=== PATIENT | male | born 1990 | race Caucasian/White ===

== ENCOUNTER 2020-12-21 15:34 | Emergency (ER) | payer OTHER ==
[~2020-12-21] VITALS: Ht 175.3 cm; Wt 74.8 kg
[2020-12-21] MEDS ORDERED: KETO10TA2 PO (19:40)
[2020-12-21] MEDS ORDERED: NORFLEX100MG PO (19:40)
== END 2020-12-21 20:45 | disposition home or self-care (01) ==
LOC: ER 15:34
DX: M54.5 Low back pain (principal)

== ENCOUNTER 2024-06-12 14:26 | Emergency (ER) | payer OTHER ==
[~2024-06-12] VITALS: Ht 175.3 cm; Wt 70.8 kg
[~2024-06-12 14:26] MED LIST: KETO10TA2 PO; NORFLEX100MG PO
[2024-06-12] MEDS ORDERED: TETANUS & DIPHTHERIA TOX,ADULT 0.5 ML VIAL IM ONE (16:15)
[2024-06-12] MEDS ORDERED: CLINDAMYCIN PHOSPHATE 150 MG/ML (600mg) IV ONE (16:15)
[2024-06-12] MEDS ORDERED: KETOROLAC TROMETHAMINE 15 MG VIAL IV ONE (16:30)
== END 2024-06-12 17:36 | disposition home or self-care (01) ==
LOC: ER 14:28
DX: S51.851A Open bite of right forearm, initial encounter (principal); W54.0XXA Bitten by dog, initial encounter; Y93.89 Activity, other specified; Y92.89 Other specified places as the place of occurrence of the external cause; Y99.8 Other external cause status
CPT/HCPCS: 90471; 90714; 96365; 99282; J1670; J1885; J3490